=== PATIENT | female | born 1990 | race African-American/Black ===

== ENCOUNTER 2018-01-08 14:47 | Emergency (ER) | payer MEDICAID ==
[~2018-01-08] VITALS: Ht 157.5 cm; Wt 68.0 kg
[~2018-01-08 14:47] MED LIST: NAPROSYN500 MG PO
[2018-01-08 15:09] LABS: URINE BILIRUBIN NEGATIVE (Negative); URINE BLOOD TRACE (Negative); URINE CLARITY CLEAR; URINE COLOR YELLOW; URINE GLUCOSE-RANDOM* NEGATIVE (Negative); URINE KETONES NEGATIVE (Negative); URINE LEUKOCYTES-REFLEX NEGATIVE (Negative); URINE NITRITE-REFLEX NEGATIVE (Negative); URINE PROTEIN (DIPSTICK) NEGATIVE (Negative); URINE SPECIFIC GRAVITY >= 1.030 (1.005-1.035); URINE UROBILINOGEN 0.2 E.U./dl (0.2-1.0)
[2018-01-08 16:25] LABS: ABSOLUTE NEUTROPHILS 2.8 thou/uL (1.4-8.2); BASOPHILS 0.6 % (0.0-2.0); EOSINOPHILS 1.1 % (0.0-3.0); HEMATOCRIT 35.3 % (37.0-47.0); HEMOGLOBIN 11.9 gm/dL (12.0-15.0); LYMPHOCYTES 43.3 % (24.0-44.0); MCH 29.1 pg (26.0-34.0); MCHC 33.7 g/dL (28.0-37.0); MCV 86.4 fL (80.0-100.0); MONOCYTES 9.1 % (1.0-8.0); PLATELET COUNT 156 thou/uL (150-400); POLYS 45.9 % (36.0-66.0); RBC 4.08 mil/uL (4.20-5.00); RDW 13.5 % (10.5-14.5); WBC 6.2 thou/uL (4.0-11.0)
[2018-01-08 16:35] LABS: CALCIUM 8.9 mg/dL (8.5-10.1); CREATININE 0.7 mg/dL (0.6-1.0); POTASSIUM 3.5 mmol/L (3.5-5.1)
[2018-01-08] MEDS ORDERED: ONDANSETRON HCL4 M2 PO (17:40)
[2018-01-08] MEDS ORDERED: DOXYCYCLINE 10100 MG PO (17:40)
[2018-01-08] MEDS ORDERED: NORCO 5-325 TA1 EACH PO (17:40)
[2018-01-08 17:54] VITALS: BP 110/71
[2018-01-10 21:11] LABS: NEISSERIA GONORRHEA-PCR Negative (Negative)
== END 2018-01-08 17:55 | disposition home or self-care (01) ==
LOC: ER 14:47
PROVIDERS: Physician Assistant
DX: N73.9 Female pelvic inflammatory disease, unspecified (principal); F17.210 Nicotine dependence, cigarettes, uncomplicated; Z88.8 Allergy status to other drugs, medicaments and biological substances; Z91.040 Latex allergy status; Z98.890 Other specified postprocedural states